=== PATIENT | male | born 2000 ===

== ENCOUNTER 2019-06-25 14:46 | Emergency (ER) | payer SELFPAY ==
--- NOTE | 2019-06-25 15:17 | UC ---
Ear Complaint HPI - HPI Summary HPI Summary: Pt presents to for eval of left ear. Pt states approx 1 week ago had a head cold, left ear felt clogged. Pt states used a giuliana pin to try to clean. No bleeding, drainage. Pt states over the last 4 days progressive pain and fullness of the ear. states head cold "better" No fever, chills. no cough, sob , cp. No n/v/d. Pt does smoke cigarette/THC Medications reviewed - History of Current Complaint Chief Complaint: UCEar Stated Complaint: LT EAR COMPLAINT Time Seen by Provider: 06/25/19 15:10 Hx Obtained From: Patient Pain Intensity: 8 - Allergies/Home Medications Allergies/Adverse Reactions: Allergies Allergy/AdvReac Type Severity Reaction Status Date / Time No Known Allergies Allergy Verified 06/25/19 15:13 PMH/Surg Hx/FS Hx/Imm Hx Previously Healthy: Yes - Surgical History Surgical History: None - Family History Known Family History: Positive: Non-Contributory - Social History Occupation: Employed Full-time Lives: With Family Alcohol Use: Rare Substance Use Type: Marijuana Substance Use Comment - Amount & Last Used: daily Smoking Status (MU): Current Every Day Smoker Type: eCigarettes Amount Used/How Often: 1 ppd Review of Systems All Other Systems Reviewed And Are Negative: Yes Constitutional: Positive: Negative Skin: Positive: Negative Eyes: Positive: Negative ENT: Positive: Ear Ache Respiratory: Positive: Negative Cardiovascular: Positive: Negative Is Patient Immunocompromised?: No Physical Exam - Summary Physical Exam Summary: Vital Signs Reviewed: Yes A+Ox3, no distress Eyes: Conjunctiva Clear, SEAN. EOM intact and full ENT: Hearing grossly normal right ear ++erythema, fluid, left TM wnl, turbinates inflammed, no canal erythema, edema mmoist, uvula midline, no exudate , no erythema Neck: Positive: Supple Respiratory: Positive: No respiratory distress, No accessory muscle use + CTA throughout no w/r Cardiovascular: RRR nl s1, s2 no m/r CBT <2 sec abd soft + BS nt/nd no guarding, no distension Musculoskeletal Exam: HOLLEY x 4 without difficulty Strength Intact, ROM Intact Neurological: Positive: Alert, + sensation throughout Psychological: Positive: Normal Response To Family Skin: Positive: no rash, no ecchymosis Triage Information Reviewed: Yes Vital Signs: Initial Vital Signs Temp 97.9 F 06/25/19 15:06 Pulse 102 06/25/19 15:06 Resp 18 06/25/19 15:06 BP 142/92 06/25/19 15:06 Pulse Ox 98 06/25/19 15:06 Ear Complaint Course/Dx - Course Course Of Treatment: Pt presents to for eval of left ear pain. Pt tried to clean with giuliana pin 1 week ago - had a head cold. Pt states x 3 days increased ear pain, head cold improved vss on exam, left OM - no canal edema, erythema Will give Good Rx - Amoxicillin - pt without insurane return precautions secretion precautions pt comfortable and in agreement with plan BP mildly increased - recommend f/u with pcp - given physican referral # decrease cigarette smoke - Differential Dx/Diagnosis Provider Diagnosis: Right otitis media Discharge ED - Sign-Out/Discharge Documenting (check all that apply): Patient Departure All imaging exams completed and their final reports reviewed: No Studies - Discharge Plan Condition: Stable Disposition: HOME Prescriptions: Amoxicillin PO (*) [Amoxicillin 500 MG CAP*] 500 mg PO TID #30 cap Patient Education Materials: Ear Infection (ED) Referrals: [facility] [place] [facility] [Outside] No Primary Care Phys,NOPCP [Primary Care Provider] - Additional Instructions: - Take antibiotics as prescribed - Alternate ibuprofen (Advil, Motrin) and Tylenol every 3hours for pain. Take with food. Do NOT take for more than 4-5 days - Stay well hydrated - drink plenty of non-alcoholic, non-caffinated beverages - work to decrease cigarette smoke Contact your doctor or return with questions or concerns - Billing Disposition and Condition Condition: STABLE Disposition: Home
== END 2019-06-25 15:32 | disposition home or self-care (01) ==
LOC: UCCORT 14:46
DX: H65.91 Unspecified nonsuppurative otitis media, right ear (principal); J34.89 Other specified disorders of nose and nasal sinuses; F17.210 Nicotine dependence, cigarettes, uncomplicated
CPT/HCPCS: 99202; G0463